=== PATIENT | male | born 1985 | race African-American/Black ===

== ENCOUNTER 2023-12-16 13:53 | Emergency (ER) | payer MEDICAID, OTHER ==
[~2023-12-16] VITALS: Ht 172.7 cm; Wt 81.0 kg
[2023-12-16 14:04] VITALS: BP 126/79; RESP 20; TEMP 98.1; O2SAT 99
[2023-12-16] MEDS ORDERED: IBUP-2029 MT (15:16)
[2023-12-16 15:37] VITALS: PULSE 82
== END 2023-12-16 15:43 | disposition home or self-care (01) ==
LOC: ER 13:53
DX: S93.401A Sprain of unspecified ligament of right ankle, initial encounter (principal); X58.XXXA Exposure to other specified factors, initial encounter; Y93.89 Activity, other specified; Y92.89 Other specified places as the place of occurrence of the external cause; Y99.8 Other external cause status
CPT/HCPCS: 73610; 29515; 99283; Z7610